=== PATIENT | female | born 1985 | race Caucasian/White ===

== ENCOUNTER 2016-10-23 03:46 | Emergency (ER) | payer SELFPAY ==
[2016-10-23 03:59] VITALS: BP 115/77; PULSE 70; TEMP 98.1; BMI 27.9
--- NOTE | 2016-10-23 04:05 | PDOC ---
History of Present Illness - General Chief Complaint: Pain Stated Complaint: 15 WKS ,BACK & ABD PAIN Time Seen by Provider: 10/23/16 04:05 Past History - Past Medical History Allergies/Adverse Reactions: Allergies Allergy/AdvReac Type Severity Reaction Status Date / Time No Known Allergies Allergy Verified 10/23/16 04:00 Home Medications: Ambulatory Orders Cholecalciferol (Vitamin D3) [Vitamin D] 1,000 unit PO DAILY 11/11/13 - Surgical History Cholecystectomy: Yes - Immunization History Immunization Up to Date: Yes - Psycho/Social/Smoking Cessation Hx Anxiety: No Suicidal Ideation: No Smoking History: Never smoked Have you smoked in the past 12 months: No Information on smoking cessation initiated: No Hx Alcohol Use: No Drug/Substance Use Hx: No Substance Use Type: None *Physical Exam - Vital Signs Last Vital Signs Temp Pulse Resp BP Pulse Ox 98.1 F 70 14 115/77 100 10/23/16 03:57 10/23/16 03:57 10/23/16 03:57 10/23/16 03:57 10/23/16 03:57 ED Treatment Course - LABORATORY CBC & Chemistry Diagram: 10/23/16 05:10 10/23/16 05:10
--- NOTE | 2016-10-23 04:34 | PDOC ---
History of Present Illness - General Chief Complaint: Pain Stated Complaint: 15 WKS ,BACK & ABD PAIN Time Seen by Provider: 10/23/16 04:05 History Source: Patient Exam Limitations: No Limitations - History of Present Illness Initial Comments: 10/23/16 04:24 Patient is a 31 y.o. female @ 15 weeks gestation who presents to the ED today c/o 1 week h/o lower back pain. Patient states her back is pain is sacral , non-radiating, dull, 6/10. Patient also notes that since her she has also noticed a clear, non-odorous mucus like discharge 2-3 times daily. ROS is positive for dysuria and increased urgency Timing/Duration: 1 week Past History - Past Medical History Allergies/Adverse Reactions: Allergies Allergy/AdvReac Type Severity Reaction Status Date / Time No Known Allergies Allergy Verified 10/23/16 04:00 Home Medications: Ambulatory Orders Vit #113/Iron/Folate [ Chewable Tab] 1 each PO DAILY - Surgical History Cholecystectomy: Yes - Immunization History Immunization Up to Date: Yes - Psycho/Social/Smoking Cessation Hx Anxiety: No Suicidal Ideation: No Smoking History: Never smoked Have you smoked in the past 12 months: No Information on smoking cessation initiated: No Hx Alcohol Use: No Drug/Substance Use Hx: No Substance Use Type: None Review of Systems - Review of Systems Constitutional: Yes: Other (No fever, chills, diaphoresis, night sweats) HEENTM: Yes: Other (No blurry vision, hearing loss, tinnitus, sore throat) Respiratory: Yes: Other (No cough, orthopnea, shortness of breath, wheezing) Cardiac (ROS): Yes: Other (No chest pain, palpitations, syncope, edema) ABD/GI: Yes: Other (No abdominal pain, constipation, diarrhea, nausea or vomiting) : Yes: Dysuria, Frequency Musculoskeletal: Yes: Back Pain (B/L Sacral Back pain, "aching" ) Integumentary: Yes: Other (No rash, erythema, bruising, lesions) Psychiatric: Yes: Other (No anxiety, depression, homicidal or suicidal ideations ) *Physical Exam - Vital Signs Last Vital Signs Temp Pulse Resp BP Pulse Ox 98.1 F 70 14 115/77 100 10/23/16 03:57 10/23/16 03:57 10/23/16 03:57 10/23/16 03:57 10/23/16 03:57 ED Treatment Course - LABORATORY CBC & Chemistry Diagram: 10/23/16 05:10 10/23/16 05:10 Medical Decision Making - Medical Decision Making 10/23/16 05:25 Transvaginal U/S revealed a viable . Patient's UA showed PLAN 1. Patient to be discharged home *DC/Admit/Observation/Transfer Diagnosis at time of Disposition: Back pain - Discharge Dispostion Disposition: HOME Condition at time of disposition: Good Admit: No - Patient Instructions Printed Discharge Instructions: DI for Low Back Pain, Common Discomforts and Bodily Changes During - Attestations Physician Attestion: 10/23/16 05:53 I, Dr. Gina Strauss, attest that this document has been prepared under my direction and personally reviewed by me in its entirety. I further attest, that it accurately reflects all work, treatment, procedures and medical decision -making performed by me.
[2016-10-23 05:24] LABS: BASOPHIL 0.5 % (0-2.0); EOSINOPHIL 0.8 % (0-4.5); MCH 29.4 pg (25.7-33.7); MCHC 34.3 g/dl (32.0-36.0); MEAN CELL VOLUME 85.8 fl (80-96); MEAN PLT VOLUME 8.3 fl (7.5-11.1); NEUTROPHILS 68.3 % (42.8-82.8); PLATELET COUNT 176 K/MM3 (134-434); WHITE BLOOD COUNT 7.4 K/mm3 (4.0-10.0)
[2016-10-23 05:38] LABS: URINE APPEARANCE CLEAR; URINE BILIRUBIN NEGATIVE (NEGATIVE); URINE BLOOD NEGATIVE (NEGATIVE); URINE COLOR LTYELLOW; URINE GLUCOSE (UA) NEGATIVE (NEGATIVE); URINE KETONE NEGATIVE (NEGATIVE); URINE LEUK ESTERASE NEGATIVE (NEGATIVE); URINE NITRITE NEGATIVE (NEGATIVE); URINE PROTEIN NEGATIVE (NEGATIVE); URINE UROBILINOGEN NEGATIVE mg/dL (0.2-1.0)
--- NOTE | 2016-10-23 05:42 | PDOC ---
Attending Attestation - Resident Resident Name: Gina Strauss - ED Attending Attestation I have performed the following: I have examined & evaluated the patient, The case was reviewed & discussed with the resident, I agree w/resident's findings & plan, Exceptions are as noted - HPI HPI: 10/23/16 05:40 31 yo F approximately 15 weeks she presents to the ER with lower abdominal pain and back pain No fevers or chills No vomiting or diarrhea No vaginal bleeding 10/23/16 05:41 - Physicial Exam PE: 10/23/16 05:41 Pt is well appearing Lower abd tenderness - Medical Decision Making 10/23/16 05:42 Will do basic labs Will do abd US Will check UA 10/27/16 11:46 Laboratory Tests 10/23/16 10/23/16 05:10 05:10 WBC 7.4 Hgb 12.3 Hct 35.9 Plt Count 176 BUN 5 L Creatinine 0.5 L US: single live IUP Will discharge to home
[2016-10-23 05:45] LABS: ALBUMIN 3.3 g/dl (3.4-5.0); ANION GAP 6 (8-16); BILIRUBIN,TOTAL 0.2 mg/dL (0.2-1.0); CALCIUM 8.9 mg/dL (8.5-10.1); CO2 25 mmol/L (21-32); CREATININE 0.5 mg/dL (0.55-1.02); GLUCOSE,RANDOM 79 mg/dL (74-106); SGOT/AST 23 U/L (15-37); SGPT/ALT 23 U/L (12-78); TOT PROT 7.1 g/dl (6.4-8.2)
[2016-10-23 05:46] LABS: ALK PHOS 58 U/L (45-117)
== END 2016-10-23 06:03 | disposition home or self-care (01) ==
LOC: JER 03:46
DX: O99.89 Other specified diseases and conditions complicating pregnancy, childbirth and the puerperium (principal); M54.5 Low back pain; Z3A.15 15 weeks gestation of pregnancy
CPT/HCPCS: 36415; 76815-TC; 80053; 81003; 85025; 86850; 86900; 86901; 87086; 99282-25

== ENCOUNTER 2017-03-31 22:45 | Inpatient (IN) | payer OTHER ==
--- NOTE | 2017-03-31 23:41 | PDOC ---
History of Present Illness - General History Source: Patient, Family Exam Limitations: No Limitations - History of Present Illness Initial Comments: 04/01/17 00:15 The patient is a 31 year old female, with a significant past medical history of pre-eclampsia, who presents to the emergency department with headache, shortness of breath, fever, chills, dysuria, hematuria, cough and bilateral flank pain for the last few days. She reports that her temperature has been as high as 101 F at home. The patient gave on 03/26/2017 via , which at the time she received an epidural without any complications. Since then she has been having the above stated symptoms. She also notes that she received morphine which gave her a body rash, but now only has a rash on her back, which is itchy at times. The patient denies chest pain, and dizziness. Denies nausea, vomit, diarrhea and constipation. Allergies: None Past surgical history: (03/26/2017), cholecystectomy Social history: No alcohol, tobacco or drug use reported <Rhett Carranza - Last Filed: 04/01/17 00:05> <Yaritza Gonzalez - Last Filed: 04/01/17 05:43> <Jonah Clayton - Last Filed: 04/01/17 23:12> - General Chief Complaint: Weakness Stated Complaint: PAIN Time Seen by Provider: 03/31/17 23:01 Past History <Rhett Carranza - Last Filed: 04/01/17 00:05> <Yaritza Gonzalez - Last Filed: 04/01/17 05:43> - Surgical History Cholecystectomy: Yes - Immunization History Immunization Up to Date: Yes - Suicide/Smoking/Psychosocial Hx Smoking History: Unknown if ever smoked Have you smoked in the past 12 months: No Information on smoking cessation initiated: No Hx Alcohol Use: No Drug/Substance Use Hx: No Substance Use Type: None <Jonah Clayton - Last Filed: 04/01/17 23:12> - Past Medical History Allergies/Adverse Reactions: Allergies Allergy/AdvReac Type Severity Reaction Status Date / Time No Known Allergies Allergy Verified 03/31/17 22:57 Home Medications: Ambulatory Orders Vit 113/Iron/Lmfolate [ Chewable Tab] 1 each PO DAILY 07/16/17 Ibuprofen [Motrin -] 600 mg PO Q6H PRN 03/31/17 Diphenhydramine HCl [Benadryl Capsule -] 25 mg PO Q6H PRN #20 capsule 04/01/17 Hydrocortisone 2.5% Lotion [Hytone 2.5% Lotion -] 1 applic TP TID PRN #90 bottle 04/01/17 Review of Systems - Review of Systems Able to Perform ROS?: Yes Comments:: 04/01/17 00:15 Constitutional: (+) Fever, chills ENT: No sore throat Cardiovascular: No palpitations; no chest pain Pulmonary: (+) Shortness of breath and cough. Gastrointestinal: No nausea; no vomiting; no diarrhea Genitourinary: (+) Dysuria, hematuria, bilateral flank pain. Skin: (+) Rash on back. Lymph system: No swollen glands Musculoskeletal: No joint swelling Neurological: (+) Headache. No weakness; No numbness; No vertigo; no lightheadedness Psychiatric:No anxiety; no depression ROS: A complete review of 10 out of 10 review of systems is taken and is negative apart from what is previously mentioned below and in the HPI. <Rhett Carranza - Last Filed: 04/01/17 00:05> *Physical Exam - Vital Signs Last Vital Signs Temp Pulse Resp BP Pulse Ox 98.2 F 95 H 16 145/93 100 03/31/17 22:55 03/31/17 22:55 03/31/17 22:55 03/31/17 22:55 03/31/17 23:48 - Physical Exam Comments: 04/01/17 00:06 Vitals: Triage vital signs reviewed General Appearance: No acute distress, well nourished, well developed Head: Atraumatic Eyes: Pupils equal reactive round, extraocular movement intact Ears: TM's normal bilaterally Nose: Nares patent bilaterally; no nasal congestion Throat: Posterior oropharynx without erythema, mucous membranes moist Neck: Supple; No nuchal rigidity Chest Wall: Nontender Cardiac: Regular rate and rhythm, no murmurs, no rubs, no gallops Lungs: Clear to auscultation bilateral, good air movement bilaterally Abdomen: (+) Left CVA tenderness. Tenderness in abdominal region near incisional area. Soft, nondistended, normal bowel sounds. Rectal: Exam deferred Extremities: Full range of motion to all extremities, no cyanosis, clubbing, or edema Skin: (+) Well healed incisional site in the lower abdomen. Neuro: AOX3; Cranial Nerves 2-12 grossly intact, Strength intact to all extremities, Sensation intact to all extremities. Psych: Normal mood, normal affect <Rhett Carranza - Last Filed: 04/01/17 00:05> - Vital Signs Last Vital Signs Temp Pulse Resp BP Pulse Ox 98.2 F 95 H 16 145/93 100 03/31/17 22:55 03/31/17 22:55 03/31/17 22:55 03/31/17 22:55 03/31/17 23:48 <Yaritza Gonzalez - Last Filed: 04/01/17 05:43> - Vital Signs Last Vital Signs Temp Pulse Resp BP Pulse Ox 98.2 F 95 H 16 145/93 100 03/31/17 22:55 03/31/17 22:55 03/31/17 22:55 03/31/17 22:55 03/31/17 22:55 <Jonah Clayton - Last Filed: 04/01/17 23:12> Heart Score/ECG Review #1 ECG reviewed & interpreted by me at: 23:54 03/31/17 23:49 EKG performed at 23:49 on 03/31/2017 demonstrates rate of 80 bpm. Normal sinus rhythm. No T wave inversions, no ST elevations <Rhett Carranza - Last Filed: 04/01/17 00:05> ED Treatment Course - LABORATORY CBC & Chemistry Diagram: 04/01/17 00:00 04/01/17 00:00 - ADDITIONAL ORDERS Additional order review: Laboratory Results 04/01/17 04/01/17 04/01/17 00:39 00:01 00:00 Sodium Potassium Chloride Carbon Dioxide Anion Gap BUN Creatinine Creat Clearance w eGFR Random Glucose Lactic Acid 0.6 Calcium Total Bilirubin AST ALT Alkaline Phosphatase Total Protein Albumin Urine Color Ltyellow Urine Appearance Clear Urine pH 5.0 Ur Specific [place] 1.011 Urine Protein Negative Urine Glucose (UA) Negative Urine Ketones Trace H Urine Blood Negative Urine Nitrite Negative Urine Bilirubin Negative Urine Urobilinogen Negative Blood Type O POSITIVE Antibody Screen Negative 04/01/17 00:00 Sodium 139 Potassium 4.3 Chloride 106 Carbon Dioxide 23 Anion Gap 10 BUN 14 D Creatinine 0.7 D Creat Clearance w eGFR > 60 Random Glucose 80 Lactic Acid Calcium 8.5 Total Bilirubin 0.4 D AST 20 ALT 20 Alkaline Phosphatase 129 H D Total Protein 6.7 Albumin 2.6 L D Urine Color Urine Appearance Urine pH Ur Specific [place] Urine Protein Urine Glucose (UA) Urine Ketones Urine Blood Urine Nitrite Urine Bilirubin Urine Urobilinogen Blood Type Antibody Screen 04/01/17 00:00 RBC 3.49 L MCV 87.6 MCHC 33.2 RDW 14.3 MPV 7.9 Neutrophils % 70.2 Lymphocytes % 21.7 Monocytes % 7.0 Eosinophils % 0.9 Basophils % 0.2 - Medications Given in the ED: ED Medications Discontinued Medications Generic Name Dose Route Start Last Admin Trade Name Freq PRN Reason Stop Dose Admin Sodium Chloride 1,000 ml 03/31/17 23:42 04/01/17 00:33 Normal Saline - IV 03/31/17 23:43 1,000 ml ONCE ONE Administration <Yaritza Gonzalez - Last Filed: 04/01/17 05:43> - LABORATORY CBC & Chemistry Diagram: 04/01/17 00:00 04/01/17 00:00 - RADIOLOGY Radiology Studies Ordered: Category Date Time Status ABDOMEN & PELVIS CT WITH CONTR [CT] Stat CT Scan 03/31/17 23:38 Ordered <Jonah Clayton - Last Filed: 04/01/17 23:12> Medical Decision Making - Medical Decision Making 04/01/17 03:34 Patient Name: ROGERS PÉREZ THIS IS A PRELIMINARY REPORT FROM [facility] DATE OF SERVICE: 2017-04-01 01:46:10 IMAGES: 534 EXAM: CT ABDOMEN AND PELVIS with vascular contrast HISTORY: Lower abdominal pain COMPARISON: None. FINDINGS: Abdomen Liver: Normal Spleen: Normal Pancreas: Normal Gallbladder: Normal Stomach: Normal Small bowel: Normal Large bowel: Normal Appendix: Normal Adrenals:Normal Kidneys: Normal Vascular: Normal Lymphatic: Normal Peritoneal: There is a focal peritoneal high density fluid collection in the left paracolic gutter. This measures 4.3 x 5.1 x 11.2 cm and likely reflects a focal hematoma. There is small amount of blood and air anterior to the uterus Pelvis: Uterus: Uterus is enlarged. There are surgical changes of delivery Rectum: Normal Bladder: Normal The inferior thorax: Normal General: Skeletal: Normal Abdominal wall: There is a cutaneous suture line in the inferior pelvis. There is a small amount of fluid in the rectus abdominal muscles measuring 4.2 x 1.1 cm IMPRESSION: Complex peritoneal fluid and air likely reflecting pneumoperitoneum and hemoperitoneum following delivery. Correlation with history and hemodynamic stability is recommended 04/01/17 05:13 Pt has shingles over multiple dermatomes of the backL Around T5, T8,9 and T11, 12 on the left side and around T11 on the right side. Pt wi;; be admitted to isolation bed and requires serologic testing to r/o VZV. Pt will also require ID eval. Pt 's baby (Jaron Huddleston) will be sent to [facility]. I spoke to the [facility] hospitalist, who agrees that the baby should be admitted through the [facility] ER. I called [facility], where pt delivered and spoke to the night network support administrator Tomasa and to the nurse of the L+D floor to alert them of the shingles outbreak 04/01/17 05:43 <Yaritza Gonzalez - Last Filed: 04/01/17 05:43> - Medical Decision Making 04/01/17 02:00 Lower abdominal pain 6 weeks status post . Mild CVA tenderness and dysuria on history and examination We'll check labs hydrate CT IV contrast and reassess. Rash on back, B/L crosses midline, ? vesicular. Dr. 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
[2017-03-31] MEDS ORDERED: SODIUM CHLORIDE 0.9% 1000 ML INFUS.BAG IV ONE (23:42)
[2017-04-01] MEDS ORDERED: morphine CARPU-JECT 4 MG/1 ML DISP.SYRIN IVPUSH ONE (00:24)
[2017-04-01] MEDS ORDERED: morphine CARPU-JECT 8 MG/1 ML DISP.SYRIN ONE (00:28)
[2017-04-01 00:34] LABS: BASO % 0.2 % (0-2.0); EOS # 0.1 # (0-4.5); EOS % 0.9 % (0-4.5); LYMPH # 1.5 (8-40); MCH 29.1 pg (25.7-33.7); MCHC 33.2 g/dl (32.0-36.0); MEAN CELL VOLUME 87.6 fl (80-96); MEAN PLT VOLUME 7.9 fl (7.5-11.1); MONO # 0.5 # (3.8-10.2); NEUT # 4.9 # (42.8-82.8); NEUT % 70.2 % (42.8-82.8); PLATELET COUNT 276 K/MM3 (134-434); RDW 14.3 % (11.6-15.6)
[2017-04-01 00:56] LABS: URINE APPEARANCE CLEAR; URINE BILIRUBIN NEGATIVE (NEGATIVE); URINE BLOOD NEGATIVE (NEGATIVE); URINE COLOR LTYELLOW; URINE GLUCOSE (UA) NEGATIVE (NEGATIVE); URINE KETONE TRACE (NEGATIVE); URINE LEUK ESTERASE NEGATIVE (NEGATIVE); URINE NITRITE NEGATIVE (NEGATIVE); URINE PROTEIN NEGATIVE (NEGATIVE); URINE UROBILINOGEN NEGATIVE mg/dL (0.2-1.0)
[2017-04-01 01:01] LABS: ALBUMIN 2.6 g/dl (3.4-5.0); ALK PHOS 129 U/L (45-117); ANION GAP 10 (8-16); BILIRUBIN,TOTAL 0.4 mg/dL (0.2-1.0); CALCIUM 8.5 mg/dL (8.5-10.1); CO2 23 mmol/L (21-32); CREATININE 0.7 mg/dL (0.55-1.02); GLUCOSE,RANDOM 80 mg/dL (74-106); SGOT/AST 20 U/L (15-37); SGPT/ALT 20 U/L (12-78); TOT PROT 6.7 g/dl (6.4-8.2)
[2017-04-01] MEDS ORDERED: valACYclovir HCL 1000 MG TABLET PO ONE (03:56)
[2017-04-01] MEDS ORDERED: morphine CARPU-JECT 8 MG/1 ML DISP.SYRIN IVPUSH PRN (04:18)
--- NOTE | 2017-04-01 05:22 | HP ---
CHIEF COMPLAINT: PCP: HISTORY OF PRESENT ILLNESS: 31 yo F with PMHx of pre-eclampsia presents to ER with two day history of cough and malaise for two days. She had on 03/26/17 and the day after she developed a generalized rash which she was told was allergic reaction to morphine. Recently for the past two days she has experience some fevers (tmax 101) and chills at home. Today she was very weak and was worried about some type of infection that prompted trip to ED. Upon arrive she was complaining of some vague abdominal pain at the incision site. In terms of rash she states that is was initially generalized to face and trunk but is now mainly on her lower back and is extremely puritic. She does not complain of any pain in distribution of rash and no burning or numbness. She has had chicken pox as a child and there have been no sick contacts with similar rash. Denies CP, MCCARTNEY, SOB , palpitations, N/V/D/ or constipation. ER course was notable for: (1)CT abdomen was done and report in chart- Complex peritoneal fluid and air likely reflecting pneumoperitoneum and hemoperitoneum following delivery. (2)CBC hgb of 10 (3) Recent Travel: Denies PAST MEDICAL HISTORY:pre-eclampsia PAST SURGICAL HISTORY: 03/26/17, Cholecystectomy Social History: Smoking:never Alcohol:denies Drugs: denies Family History: Allergies No Known Allergies Allergy (Verified 03/31/17 22:57) HOME MEDICATIONS: Home Medications Medication Instructions Recorded Vit 113/Iron/Lmfolate 1 each PO DAILY 10/23/16 [ Chewable Tab] Ibuprofen [Motrin -] 600 mg PO Q6H PRN 03/31/17 REVIEW OF SYSTEMS CONSTITUTIONAL:fever, chills, diaphoresis, generalized weakness, malaise Absent: , loss of appetite, weight change HEENT: Absent: rhinorrhea, nasal congestion, throat pain, throat swelling, difficulty swallowing, mouth swelling, ear pain, eye pain, visual changes CARDIOVASCULAR: Absent: chest pain, syncope, palpitations, irregular heart rate, lightheadedness , peripheral edema RESPIRATORY: Absent: cough, shortness of breath, dyspnea with exertion, orthopnea, wheezing, stridor, hemoptysis GASTROINTESTINAL: Absent: abdominal pain, abdominal distension, nausea, vomiting, diarrhea, constipation, melena, hematochezia GENITOURINARY: Absent: dysuria, frequency, urgency, hesitancy, hematuria, flank pain, genital pain MUSCULOSKELETAL: Absent: myalgia, arthralgia, joint swelling, back pain, neck pain SKIN: Absent: rash, itching, pallor HEMATOLOGIC/IMMUNOLOGIC: Absent: easy bleeding, easy bruising, lymphadenopathy, frequent infections ENDOCRINE: Absent: unexplained weight gain, unexplained weight loss, heat intolerance, cold intolerance NEUROLOGIC: Absent: headache, focal weakness or paresthesias, dizziness, unsteady gait, seizure, mental status changes, bladder or bowel incontinence PSYCHIATRIC: Absent: anxiety, depression, suicidal or homicidal ideation, hallucinations. PHYSICAL EXAMINATION Vital Signs - 24 hr 03/31/17 03/31/17 22:55 23:48 Temperature 98.2 F Pulse Rate 95 H Respiratory 16 Rate Blood Pressure 145/93 O2 Sat by Pulse 100 100 Oximetry (%) GENERAL: Awake, alert, and fully oriented, in no acute distress. HEAD: Normal with no signs of trauma. EYES: Pupils equal, round and reactive to light, extraocular movements intact, sclera anicteric, conjunctiva clear. No lid lag. EARS, NOSE, THROAT: Ears normal, nares patent, oropharynx clear without exudates. Moist mucous membranes. NECK: Normal range of motion, supple without lymphadenopathy, JVD, or masses. LUNGS: Breath sounds equal, clear to auscultation bilaterally. No wheezes, and no crackles. No accessory muscle use. HEART: Regular rate and rhythm, normal S1 and S2 without murmur, rub or gallop. ABDOMEN: Soft, nontender, not distended, normoactive bowel sounds, no guarding, no rebound, no masses. No hepatomegaly or splenomegaly. MUSCULOSKELETAL: Normal range of motion at all joints. No bony deformities or tenderness. No CVA tenderness. UPPER EXTREMITIES: 2+ pulses, warm, well-perfused. No cyanosis. No clubbing. No peripheral edema. LOWER EXTREMITIES: 2+ pulses, warm, well-perfused. No calf tenderness. No peripheral edema. NEUROLOGICAL: Cranial nerves II-XII intact. Normal speech. Normal gait. PSYCHIATRIC: Cooperative. Good eye contact. Appropriate mood and affect. SKIN: Warm, dry, normal turgor, no rashes or lesions noted, normal capillary refill. Laboratory Results - last 24 hr 04/01/17 04/01/17 04/01/17 00:00 00:00 00:00 WBC 7.0 RBC 3.49 L Hgb 10.1 L D Hct 30.6 L MCV 87.6 MCH 29.1 MCHC 33.2 RDW 14.3 Plt Count 276 D MPV 7.9 Neutrophils % 70.2 Lymphocytes % 21.7 Monocytes % 7.0 Eosinophils % 0.9 Basophils % 0.2 Sodium 139 Potassium 4.3 Chloride 106 Carbon Dioxide 23 Anion Gap 10 BUN 14 D Creatinine 0.7 D Creat Clearance w eGFR > 60 Random Glucose 80 Lactic Acid Calcium 8.5 Total Bilirubin 0.4 D AST 20 ALT 20 Alkaline Phosphatase 129 H D Total Protein 6.7 Albumin 2.6 L D Urine Color Urine Appearance Urine pH Ur Specific [place] Urine Protein Urine Glucose (UA) Urine Ketones Urine Blood Urine Nitrite Urine Bilirubin Urine Urobilinogen Blood Type O POSITIVE Antibody Screen Negative 04/01/17 04/01/17 00:01 00:39 WBC RBC Hgb Hct MCV MCH MCHC RDW Plt Count MPV Neutrophils % Lymphocytes % Monocytes % Eosinophils % Basophils % Sodium Potassium Chloride Carbon Dioxide Anion Gap BUN Creatinine Creat Clearance w eGFR Random Glucose Lactic Acid 0.6 Calcium Total Bilirubin AST ALT Alkaline Phosphatase Total Protein Albumin Urine Color Ltyellow Urine Appearance Clear Urine pH 5.0 Ur Specific [place] 1.011 Urine Protein Negative Urine Glucose (UA) Negative Urine Ketones Trace H Urine Blood Negative Urine Nitrite Negative Urine Bilirubin Negative Urine Urobilinogen Negative Blood Type Antibody Screen ASSESSMENT/PLAN: 31 yo F with no signficant PMHx admitted to hospital for further management of suspected herpes zoster infection. Problem List - Problem (1) Shingles (herpes zoster) polyneuropathy Assessment/Plan: Possible multiple dermatome shingles. * Will consult ID * Valacyclovir given * IVF with NS * Will need comfirmitory test Visit type - Emergency Visit Emergency Visit: Yes ED Registration Date: 04/01/17 Care time: The patient presented to the Emergency Department on the above date and was hospitalized for further evaluation of their emergent condition. - New Patient This patient is new to me today: Yes Date on this admission: 04/04/17 - Critical Care Critical Care patient: No
[2017-04-01 08:31] VITALS: BP 125/82; BMI 27.7
--- NOTE | 2017-04-01 09:34 | PN ---
Progress Note (short form) - Note Progress Note: ID 31 year old Citizen Of [place] female living in [place] 12 years S/P Cesarian section 03/26 complicated by precalmpsia at 36 weeks. Discharged 03/29 Day after surgery had a pruritic rash all over her back chest abd not painful. Now returns with same rash still pruritic. ON isolation for VZV. HIV status negative . No travel Not diabetic. Selected Entries 04/01/17 08:14 Temperature 98.2 F Pulse Rate 85 Respiratory 20 Rate Blood Pressure 125/82 Weight 137 lb 7 oz Lung Clear Cor S1 S2 RR Abd soft nontender suture line clean no drainage fluctuance tenderness Skin Mac paularo rash lower back bilaterally upper abdomen neck Microbiology Laboratory Tests 04/01/17 00:00 WBC 7.0 Hgb 10.1 L D Hct 30.6 L Plt Count 276 D Neutrophils % 70.2 Lymphocytes % 21.7 Monocytes % 7.0 Eosinophils % 0.9 Assessment Drug eruption ? morphne related This is not shingles Plan Steroids Prednisone ? home with follow up with [facility] Problem List - Problems (1) Drug eruption Code(s): L27.0 - GEN SKIN ERUPTION DUE TO DRUGS AND MEDS TAKEN INTERNALLY (2) Shingles (herpes zoster) polyneuropathy Code(s): B02.23 - POSTHERPETIC POLYNEUROPATHY
[2017-04-01 12:26] LABS: URINE LEUK ESTERASE Negative (NEGATIVE)
[2017-04-01 15:27] VITALS: PULSE 64; TEMP 99.1
[2017-04-01] MEDS ORDERED: diphenhydrAMINE HCL 25 MG CAPSULE (FP) PO PRN (15:31)
[2017-04-01] MEDS ORDERED: HYDROCORTISONE 2.5% LOTION - 1 BOTTLE TP PRN (15:31)
--- NOTE | 2017-04-01 15:34 | DS ---
Physical Examination Vital Signs: Vital Signs Temperature 99.1 F 04/01/17 15:26 Pulse Rate 64 04/01/17 15:26 Respiratory Rate 18 04/01/17 15:26 Blood Pressure 125/82 04/01/17 08:14 O2 Sat by Pulse Oximetry (%) 100 04/01/17 07:05 Findings/Remarks: awake alert no fever no chills, likely rash is allerghic reaction to anesthesia or contact Constitutional: Yes: No Distress Eyes: Yes: WNL HENT: Yes: WNL Neck: Yes: WNL Cardiovascular: Yes: WNL Respiratory: Yes: WNL Gastrointestinal: Yes: WNL Musculoskeletal: Yes: WNL Extremities: Yes: WNL Edema: No Peripheral Pulses WNL: Yes Integumentary: Yes: Rash (RED ERYTHEMA ON MULTIPLE SITES ON HER BODY THAT CROSS OVER , NOT ZOSTER), Other Wound/Incision: Yes: [place] Intact Neurological: Yes: WNL ...Motor Strength: WNL Psychiatric: Yes: WNL Labs: CBC, BMP 04/01/17 00:00 04/01/17 00:00 Discharge Summary Reason For Visit: SHINGLES (HERPES ZOSTER) POLYNEUOPATHY Current Active Problems Drug eruption (Acute) Shingles (herpes zoster) polyneuropathy (Acute) Hospital Course: ADMITTED IVF, WOUND CARE, ID F/U Condition: Good - Instructions Diet, Activity, Other Instructions: REG SEE YOUR PMD IN 1-2 DAYS NO BREAST FEEDING! Referrals: Lynda Valdez [Primary Care Provider] - Disposition: HOME - Home Medications Comprehensive Discharge Medication List: Ambulatory Orders Vit 113/Iron/Lmfolate [ Chewable Tab] 1 each PO DAILY 10/23/16 Ibuprofen [Motrin -] 600 mg PO Q6H PRN 03/31/17
--- NOTE | 2017-04-01 16:30 | EKG ---
Test Reason : Blood Pressure : / mmHG Vent. Rate : 080 BPM Atrial Rate : 080 BPM P-R Int : 134 ms QRS Dur : 082 ms QT Int : 372 ms P-R-T Axes : 054 004 022 degrees QTc Int : 429 ms NORMAL SINUS RHYTHM NORMAL ECG NO PREVIOUS ECGS AVAILABLE Confirmed by LEXI JIMENEZ MD ([id number]) on 04/01/2017 4:30:03 PM Referred By: Confirmed By:LEXI JIMENEZ MD
== END 2017-04-01 17:11 | disposition home or self-care (01) | DRG 561 ==
LOC: JER 22:45 → JERBED 04-01 04:17 → J8W 04-01 08:37
PROVIDERS: ADMIT Internal Medicine; ATTEND Family Medicine
DX: O86.4 Pyrexia of unknown origin following delivery (principal); B02.23 Postherpetic polyneuropathy; O90.89 Other complications of the puerperium, not elsewhere classified; L27.0 Generalized skin eruption due to drugs and medicaments taken internally; T50.995A Adverse effect of other drugs, medicaments and biological substances, initial encounter
CPT/HCPCS: 36415; 74177-TC; 80053; 81003; 83605; 85025; 86787; 86850; 86900; 86901; 87040; 87086; 93005; 93010; 99284-25

== ENCOUNTER 2018-05-29 19:52 | Emergency (ER) | payer OTHER ==
--- NOTE | 2018-05-29 19:59 | PDOC ---
Rapid Medical Evaluation Chief Complaint: Headache Time Seen by Provider: 05/29/18 19:56 Medical Evaluation: Allergies Allergy/AdvReac Type Severity Reaction Status Date / Time No Known Allergies Allergy Verified 09/21/17 10:53 05/29/18 19:57 I have performed a brief in person evaluation of this patient. CC: MCCARTNEY HPI: Pt is a 32 YO female who states that over the past 2 days she has had neck pain/stiffness with MCCARTNEY x 2 days. Denies fever. Pt took Tylenol at 1900. No Motrin today. PE: Skin: Clear Lungs: Clear Heart:RRR MS: Moves all extremities without difficulty Neuro: Alert and oriented Psych: Appropriate affect Pt will proceed to the main ED for further evaluation. 05/29/18 19:58 Discharge Disposition - Diagnosis Headache Qualifiers: Headache type: unspecified Headache chronicity pattern: acute headache Intractability: not intractable Qualified Code(s): R51 - Headache - Referrals - Patient Instructions - Post Discharge Activity
[2018-05-29 20:01] VITALS: TEMP 98; BMI 27.0
--- NOTE | 2018-05-29 20:39 | PDOC ---
History of Present Illness - General Chief Complaint: Headache Stated Complaint: DIZZY NECK PAIN Time Seen by Provider: 05/29/18 19:56 History Source: Patient - History of Present Illness Initial Comments: 05/29/18 22:52 32-year-old female complaining of headache photophobia and neck pain since 2 PM. Patient reports that she has been getting headaches on and off for the last one year after giving . Today took Tylenol with no relief in pain. Patient also reports sore throat denies fevers/chills, rash, nausea, vomiting, diarrhea , abdominal pain. Past History - Past Medical History Allergies/Adverse Reactions: Allergies Allergy/AdvReac Type Severity Reaction Status Date / Time No Known Allergies Allergy Verified 05/29/18 20:00 Home Medications: Ambulatory Orders NK [No Known Home Medication] 09/21/17 COPD: No - Surgical History Cholecystectomy: Yes - Immunization History Immunization Up to Date: Yes - Suicide/Smoking/Psychosocial Hx Smoking History: Never smoked Have you smoked in the past 12 months: No Information on smoking cessation initiated: No Hx Alcohol Use: No Drug/Substance Use Hx: No Substance Use Type: None Review of Systems - Review of Systems Able to Perform ROS?: Yes Is the patient limited Uzbek proficient: No Constitutional: No: Symptoms Reported, See HPI, Chills, Diaphoresis, Fever, Loss of Appetite, Malaise, Night Sweats, Weakness, Weight Stable, Unintentional Wgt. Loss, Unexplained wgt Loss, Other HEENTM: Yes: Other (photophobia). No: Symptoms Reported, See HPI, Eye Pain, Blurred Vision, Tearing, Recent change in vision, Double Vision, Cataracts, Ear Pain, Ocular Prothesis, Ear Discharge, Nose Pain, Nose Congestion, Tinnitus, Nose Bleeding, Hearing Loss, Throat Pain, Throat Swelling, Mouth Pain, Dental Problems, Difficulty Swallowing, Mouth Swelling Neurological: Yes: Headache *Physical Exam - Vital Signs Last Vital Signs Temp Pulse Resp BP Pulse Ox 98.0 F 73 18 150/96 100 05/29/18 19:58 05/29/18 19:58 05/29/18 19:58 05/29/18 19:58 05/29/18 19:58 - Physical Exam General Appearance: Yes: Appropriately Dressed Respiratory/Chest: positive: Lungs Clear, Normal Breath Sounds Moderate Sedation - Procedure Monitoring Vital Signs: Procedure Monitoring Vital Signs Temperature 98.0 F 05/29/18 19:58 Pulse Rate 73 05/29/18 19:58 Respiratory Rate 18 05/29/18 19:58 Blood Pressure 150/96 05/29/18 19:58 O2 Sat by Pulse Oximetry (%) 100 05/29/18 19:58 ED Treatment Course - LABORATORY CBC & Chemistry Diagram: 05/29/18 21:05 05/29/18 21:05 *DC/Admit/Observation/Transfer Diagnosis at time of Disposition: Headache Qualifiers: Headache type: unspecified Headache chronicity pattern: acute headache Intractability: not intractable Qualified Code(s): R51 - Headache - Discharge Dispostion Disposition: HOME - Referrals Referrals: Edward Carcamo MD [Staff Physician] - Call tomorrow Weston Lloyd MD [Staff Physician] - Call tomorrow - Patient Instructions Printed Discharge Instructions: Migraine -- Adult Additional Instructions: drink plenty of fluids take tylenol for headache every 4- 6hours as needed follow up with a neurologist as soon as possible. return to the ER if symptoms worsen. - Post Discharge Activity Forms/Work/School Notes: Back to Work NIH Stroke Scale - Last Known Well Date/Time & Onset Date Last Known Well: 05/29/18 Time Last Known Well: 14:00 - Initial Evaluation Level of consciousness: Alert Ask patient the month and their age: Answers both correctly Ask patient to open & close eyes; make fist and let go: Obeys both correctly Best gaze (horizontal eye movement): Normal Visual field testing: No visual field loss Facial paresis (Show teeth/raise eyebrows/close eyes tight): Normal symmetrical movement Motor Function: Left Arm: Normal Motor Function: Right Arm: Normal (extends arm 90 (or 45) degrees for 10 seconds without drift Motor Function: Left Leg: Normal (extends leg 30 degrees for 5 seconds without drift) Motor Function: Right Leg: Normal (extends leg 30 degrees for 5 seconds without drift) Limb Ataxia: No ataxia Sensory(Use pinprick test arms,legs,trunk,face/side to side): Normal Best language (Describe picture, name items, read sentences): No Aphasia Dysarthria (read several words): Normal articulation Extinction and Inattention: No abnormality - Total Score NIH Stroke Scale Score: 0
[2018-05-29] MEDS ORDERED: METOCLOPRAMIDE HCL INJECTION 10 MG/2 ML VIAL IVPB ONE (20:40)
[2018-05-29] MEDS ORDERED: SODIUM CHLORIDE 1,000 ML IV STA (20:40)
[2018-05-29] MEDS ORDERED: METOCLOPRAMIDE HCL INJECTION 10 MG/2 ML VIAL ONE (21:13)
[2018-05-29 21:41] LABS: BASO % 0.3 % (0-2.0); EOS % 0.8 % (0-4.5); HEMATOCRIT 38.1 % (32.4-45.2); HEMOGLOBIN 13.1 GM/dL (10.7-15.3); LYMPH % 46.3 % (8-40); MCH 29.6 pg (25.7-33.7); MCHC 34.3 g/dl (32.0-36.0); MEAN CELL VOLUME 86.3 fl (80-96); MEAN PLT VOLUME 9.2 fl (7.5-11.1); MONO % 6.1 % (3.8-10.2); NEUT % 46.5 % (42.8-82.8); PLATELET COUNT 189 K/MM3 (134-434); RBC 4.41 M/mm3 (3.60-5.2); RDW 13.8 % (11.6-15.6); WHITE BLOOD COUNT 5.6 K/mm3 (4.0-10.0)
[2018-05-29 21:47] LABS: ALBUMIN 4.2 g/dl (3.4-5.0); ALK PHOS 117 U/L (45-117); ANION GAP 6 MMOL/L (8-16); BILIRUBIN,TOTAL 0.3 mg/dL (0.2-1); BLOOD UREA NITROGEN 16 mg/dL (7-18); CALCIUM 9.1 mg/dL (8.5-10.1); CHLORIDE 106 mmol/L (98-107); CO2 28 mmol/L (21-32); CREATININE 0.7 mg/dL (0.55-1.3); GLUCOSE,RANDOM 81 mg/dL (74-106); POTASSIUM 4.3 mmol/L (3.5-5.1); SGOT/AST 26 U/L (15-37); SGPT/ALT 20 U/L (13-61); SODIUM 140 mmol/L (136-145); TOT PROT 8.2 g/dl (6.4-8.2)
[2018-05-29] MEDS ORDERED: KETOROLAC TROMETHAMINE 30 MG/1 ML VIAL IVPUSH ONE (22:57)
[2018-05-29 23:37] VITALS: BP 142/76; PULSE 78
== END 2018-05-29 23:37 | disposition home or self-care (01) ==
LOC: JER 19:52
PROC: 3E033GC Introduction of Other Therapeutic Substance into Peripheral Vein, Percutaneous Approach (ICD-10-PCS; principal; 2018-05-29)
PROC: 3E033GC Introduction of Other Therapeutic Substance into Peripheral Vein, Percutaneous Approach (ICD-10-PCS; 2018-05-29)
DX: R51 Headache (principal)
CPT/HCPCS: 36415; 70450-TC; 80053; 84443; 84703; 85025; 87070; 87077; 87880; 96374; 96375; 99282-25; J7030

== ENCOUNTER 2018-11-20 10:27 | Emergency (ER) | payer SELFPAY ==
[2018-11-20 10:34] VITALS: BMI 19.2
[2018-11-20] MEDS ORDERED: SODIUM CHLORIDE 1,000 ML IV STA (10:49)
[2018-11-20] MEDS ORDERED: ONDANSETRON 4 MG/2 ML VIAL IVPUSH ONE (10:49)
[2018-11-20] MEDS ORDERED: ACETAMINOPHEN 325 MG TABLET (FP) PO ONE (10:49)
[2018-11-20] MEDS ORDERED: ONDANSETRON 4 MG/2 ML VIAL ONE (11:32)
[2018-11-20] MEDS ORDERED: ACETAMINOPHEN 325 MG TABLET (FP) ONE (11:32)
--- NOTE | 2018-11-20 11:48 | PDOC ---
History of Present Illness - General History Source: Patient Exam Limitations: No Limitations <Melanie Melo - Last Filed: 11/20/18 15:18> <Tahira Kaufman - Last Filed: 11/20/18 15:22> - General Chief Complaint: SIRS, Suspected/Possible Stated Complaint: VOMITING/DIARRHEA Time Seen by Provider: 11/20/18 10:38 Past History - Past Medical History COPD: No - Surgical History Cholecystectomy: Yes - Immunization History Immunization Up to Date: Yes - Suicide/Smoking/Psychosocial Hx Smoking History: Never smoked Have you smoked in the past 12 months: No Hx Alcohol Use: No Drug/Substance Use Hx: No Substance Use Type: None <KameronMargaretMelanie - Last Filed: 11/20/18 15:18> <Tahira Kaufman - Last Filed: 11/20/18 15:22> - Past Medical History Allergies/Adverse Reactions: Allergies Allergy/AdvReac Type Severity Reaction Status Date / Time No Known Allergies Allergy Verified 11/20/18 10:34 Home Medications: Ambulatory Orders Azithromycin [Zithromax] 500 mg PO DAILY #5 tablet 06/01/18 Cephalexin Monohydrate [Keflex -] 500 mg PO Q8H #30 capsule 11/20/18 *Physical Exam - Vital Signs Last Vital Signs Temp Pulse Resp BP Pulse Ox 100.3 F H 91 H 18 117/63 100 11/20/18 10:32 11/20/18 10:32 11/20/18 10:32 11/20/18 10:32 11/20/18 10:32 - Physical Exam General Appearance: No: Apparent Distress Respiratory/Chest: positive: Lungs Clear, Normal Breath Sounds. negative: Respiratory Distress Cardiovascular: positive: Regular Rhythm, Regular Rate, S1, S2. negative: Murmur Gastrointestinal/Abdominal: positive: Normal Bowel Sounds, Soft. negative: Tender, Distended, Guarding, Rebound Musculoskeletal: negative: CVA Tenderness Integumentary: positive: Other (R nipple swollen, R nipple induration, no surrounding erythema, no warmth, no masses) Neurologic: positive: Alert, Normal Mood/Affect <KameronMelanie - Last Filed: 11/20/18 15:18> - Vital Signs Last Vital Signs Temp Pulse Resp BP Pulse Ox 100.3 F H 91 H 18 117/63 100 11/20/18 10:32 11/20/18 10:32 11/20/18 10:32 11/20/18 10:32 11/20/18 10:32 <Tahira Kaufman Shaebibilili - Last Filed: 11/20/18 15:22> ED Treatment Course - LABORATORY CBC & Chemistry Diagram: 11/20/18 12:21 11/20/18 12:21 <Melanie Melo - Last Filed: 11/20/18 15:18> - LABORATORY CBC & Chemistry Diagram: 11/20/18 12:21 11/20/18 12:21 - ADDITIONAL ORDERS Additional order review: Laboratory Results 11/20/18 11/20/18 11/20/18 12:21 12:21 12:21 Sodium 137 Potassium 4.3 Chloride 103 Carbon Dioxide 27 Anion Gap 8 BUN 11.5 Creatinine 0.8 Est GFR (CKD-EPI)AfAm 110.70 Est GFR (CKD-EPI)NonAf 95.52 Random Glucose 129 H Calcium 8.7 Total Bilirubin 0.5 AST 20 ALT 20 Alkaline Phosphatase 88 Total Protein 7.7 Albumin 3.8 Urine Color Yellow Urine Appearance Clear Urine pH 8.0 D Ur Specific [place] 1.025 Urine Protein Negative Urine Glucose (UA) Negative Urine Ketones Negative Urine Blood Negative Urine Nitrite Negative Urine Bilirubin Negative Urine Urobilinogen 0.2 Ur Leukocyte Esterase Negative Urine HCG, Qual Negative 11/20/18 12:21 RBC 4.41 MCV 87.2 MCHC 33.7 RDW 13.1 MPV 9.1 Neutrophils % 91.9 H D Lymphocytes % 5.4 L D Monocytes % 2.6 L Eosinophils % 0.0 D Basophils % 0.1 - Medications Given in the ED: ED Medications Discontinued Medications Generic Name Dose Route Start Last Admin Trade Name Freq PRN Reason Stop Dose Admin Acetaminophen 975 mg 11/20/18 10:49 11/20/18 12:11 Tylenol - PO 11/20/18 10:50 975 mg ONCE ONE Administration Cephalexin HCl 500 mg 11/20/18 13:23 11/20/18 13:15 Keflex - PO 11/20/18 13:24 500 mg ONCE ONE Administration Sodium Chloride 1,000 mls @ 1,000 mls/hr 11/20/18 10:49 11/20/18 12:10 Normal Saline - IV 11/20/18 11:48 1,000 mls/hr ASDIR STA Administration Ibuprofen 600 mg 11/20/18 12:59 11/20/18 13:15 Motrin - PO 11/20/18 13:00 600 mg ONCE ONE Administration Ondansetron HCl 4 mg 11/20/18 10:49 11/20/18 12:11 Zofran Injection IVPUSH 11/20/18 10:50 4 mg ONCE ONE Administration <Tahira Kaufman - Last Filed: 11/20/18 15:22> Medical Decision Making - Medical Decision Making 33 y/o F with no sig pmh presents with fever from yesterday along with body aches, epigastric pain, 1 episode of NBNB emesis and 3 episodes of watery diarrhea and slight dysuria. Also mentions R breast is swollen x 1 month; is currently (gave Mar 2017; breasts and bottle feeds); when she initially noticed the swelling, she said it got better after she continued to breastfeed. However, states her baby scratched the nipple region and now it has gotten worse. Denies URI sxs, sore throat, ear pain, cough, sob, cp, hematuria. LNMP was 7/25. Last took Tylenol for fever at 3 AM Concern for R nipple abscess, no evidence of cellulitis on exam; also r/o pyelonephritis Plan: Labs, IVF, Tylenol, Zofran, reassess 11/20/18 11:45 urine negative breast US shows no evidence of abscess; likely some inflammation noted Patient given keflex Will refer to breast doctor for further evaluation 11/20/18 15:08 <Melanie Melo - Last Filed: 11/20/18 15:18> - Medical Decision Making The patient was seen and evaluated in conjunction with midlevel provider under my direct supervision, ancillary studies were reviewed. I agree with the plan as outlined EILEEN Melo. HPI, workup/dispo as outlined. VS reviewed, +fever nontoxic appearing no nipple drainage, no erythema or discoloration treat as mastitis, warm compresses, breast elevation and support, keflex TID x 10 day course, ibuprofen/tylenol for pain can resume breast feeding, but pt will stop now anticipate discharge, pcp followup, return precautions 11/20/18 14:15 <Tahira Kaufman - Last Filed: 11/20/18 15:22> *DC/Admit/Observation/Transfer - Discharge Dispostion Decision to Admit order: No <Melanie Melo - Last Filed: 11/20/18 15:18> <Tahira Kaufman - Last Filed: 11/20/18 15:22> Diagnosis at time of Disposition: Infection of right breast, Mastitis - Discharge Dispostion Disposition: HOME Condition at time of disposition: Stable - Prescriptions Prescriptions: Cephalexin Monohydrate [Keflex -] 500 mg PO Q8H #30 capsule - Referrals Referrals: Ovidio Almaguer MD [Staff Physician] - 2 Days - Patient Instructions Printed Discharge Instructions: DI for Mastitis Additional Instructions: Thank you for choosing [facility]. It was a pleasure taking care of you. You may take Motrin 600 mg every 6 hours by mouth as needed for mild to moderate pain. Take Motrin with food. Apply warm compresses Take antibiotics as prescribed You were referred to breast surgeon for further evaluation Return to the Emergency Department if your symptoms worsen or persist, you have fever, shortness of breath, chest pain, increased breast swelling, pustular drainage, streaking or other concerning symptoms.
[2018-11-20 12:33] LABS: BASO % 0.1 % (0-2.0); HEMATOCRIT 38.4 % (32.4-45.2); LYMPH % 5.4 % (8-40); MCH 29.4 pg (25.7-33.7); MCHC 33.7 g/dl (32.0-36.0); MEAN CELL VOLUME 87.2 fl (80-96); MEAN PLT VOLUME 9.1 fl (7.5-11.1); MONO % 2.6 % (3.8-10.2); NEUT % 91.9 % (42.8-82.8); PLATELET COUNT 168 K/MM3 (134-434); RBC 4.41 M/mm3 (3.60-5.2); RDW 13.1 % (11.6-15.6); WHITE BLOOD COUNT 8.1 K/mm3 (4.0-10.0)
[2018-11-20 12:51] LABS: URINE APPEARANCE CLEAR; URINE BILIRUBIN NEGATIVE (NEGATIVE); URINE COLOR YELLOW; URINE GLUCOSE (UA) NEGATIVE (NEGATIVE); URINE KETONE NEGATIVE (NEGATIVE); URINE LEUK ESTERASE NEGATIVE (NEGATIVE); URINE NITRITE NEGATIVE (NEGATIVE); URINE PROTEIN NEGATIVE (NEGATIVE); URINE UROBILINOGEN 0.2 mg/dL (0.2-1.0)
[2018-11-20] MEDS ORDERED: IBUPROFEN 600 MG TABLET (FP) PO ONE ×2 (12:59→13:34)
[2018-11-20 13:01] LABS: ALBUMIN 3.8 g/dl (3.4-5.0); BILIRUBIN,TOTAL 0.5 mg/dL (0.2-1); BLOOD UREA NITROGEN 11.5 mg/dL (7-18); CALCIUM 8.7 mg/dL (8.5-10.1); CREATININE 0.8 mg/dL (0.55-1.3); POTASSIUM 4.3 mmol/L (3.5-5.1); TOT PROT 7.7 g/dl (6.4-8.2)
[2018-11-20] MEDS ORDERED: CEPHALEXIN MONOHYDRATE 500 MG CAPSULE (UD) PO ONE (13:23)
[2018-11-20] MEDS ORDERED: CEPHALEXIN MONOHYDRATE 500 MG CAPSULE (UD) ONE (13:34)
[2018-11-20 14:23] LABS: ANISOCYTOSIS 0; HELMET CELLS 0; HOWELL-JOLLY BODIES 0; MACROCYTOSIS 0; OVALOCYTE 0; PLATELET ESTIMATE NORMAL; ROULEAU 0; SICKELED CELLS 0; TARGET CELLS 0; TEAR DROP CELLS 0; TOXIC GRANULATION 0
[2018-11-20 16:19] VITALS: BP 97/52; PULSE 76; TEMP 98.3
== END 2018-11-20 16:10 | disposition home or self-care (01) ==
LOC: JER 10:27
PROC: 3E033GC Introduction of Other Therapeutic Substance into Peripheral Vein, Percutaneous Approach (ICD-10-PCS; principal; 2018-11-20)
PROC: 3E0337Z Introduction of Electrolytic and Water Balance Substance into Peripheral Vein, Percutaneous Approach (ICD-10-PCS; 2018-11-20)
DX: N61.0 Mastitis without abscess (principal)
CPT/HCPCS: 36415; 76641-TC-RT; 80053; 81003; 84703; 85025; 87086; 99283-25; J7030

== ENCOUNTER 2019-05-03 02:04 | Emergency (ER) | payer OTHER ==
--- NOTE | 2019-05-03 02:30 | PDOC ---
History of Present Illness - General Chief Complaint: Shortness of Breath Stated Complaint: DIFFICULTY BREATHING,BACK PAIN Time Seen by Provider: 05/03/19 02:23 - History of Present Illness Initial Comments: 05/03/19 03:44 33 y/o F no significant medical hx, presents to the ED with chest pain. pt just recently recovered from a flu-like illness where she had cough, runny nose and myalgias. Pain has been present for 1 week but she reports it wornesened acutely over night. Pain is 5/10 pressure like in nature radiating to her back . Intermittent in nature. It worsens with lying flat and is alleviated slightly by sitting up or leaning forward. She denies any fevers, chills, nausea, vomiting, shortness of breath, hx of blood clots, hormone/contraceptive use, long travel, unilateral leg swelling. Past History - Past Medical History Allergies/Adverse Reactions: Allergies Allergy/AdvReac Type Severity Reaction Status Date / Time No Known Allergies Allergy Verified 05/03/19 02:25 Home Medications: Ambulatory Orders Famotidine [Pepcid] 20 mg PO BID #14 tablet 05/03/19 COPD: No - Surgical History Cholecystectomy: Yes - Immunization History Immunization Up to Date: Yes - Psycho Social/Smoking Cessation Hx Smoking History: Never smoked Have you smoked in the past 12 months: No Information on smoking cessation initiated: No Hx Alcohol Use: No Drug/Substance Use Hx: No Substance Use Type: None Review of Systems - Review of Systems Constitutional: No: Chills, Fever HEENTM: No: Eye Pain, Blurred Vision Respiratory: No: Cough, Stridor Cardiac (ROS): Yes: Chest Pain. No: Lightheadedness ABD/GI: No: Nausea, Vomiting : No: Burning, Dysuria Musculoskeletal: Yes: Back Pain Integumentary: No: Bruising, Change in Color Neurological: No: Headache, Numbness *Physical Exam - Vital Signs Last Vital Signs Temp Pulse Resp BP Pulse Ox 98.9 F 63 20 128/81 100 05/03/19 02:25 05/03/19 02:25 05/03/19 02:25 05/03/19 02:25 05/03/19 02:25 - Physical Exam 05/03/19 03:51 PE: GENERAL: Awake, alert, and fully oriented, in no acute distress HEAD: No signs of trauma, normocephalic, atraumatic EYES: PERRLA, EOMI, sclera anicteric, conjunctiva clear ENT: Auricles normal inspection, hearing grossly normal, nares patent, oropharynx clear without exudates. Moist mucosa NECK: Normal ROM, supple, no lymphadenopathy, JVD, or masses LUNGS: No distress, speaks full sentences, clear to auscultation bilaterally HEART: Regular rate and rhythm, normal S1 and S2, no murmurs, rubs or gallops, peripheral pulses normal and equal bilaterally. ABDOMEN: Soft. mild epigastric tenderness, normoactive bowel sounds. No guarding, no rebound. No masses EXTREMITIES : Normal inspection, Normal range of motion, no edema. No clubbing or cyanosis NEUROLOGICAL: Cranial nerves II through XII grossly intact. Normal speech, normal gait, no focal sensorimotor deficits SKIN: Warm, Dry, normal turgor, no rashes or lesions noted ED Treatment Course - LABORATORY CBC & Chemistry Diagram: 05/03/19 03:02 05/03/19 03:02 Medical Decision Making - Medical Decision Making 05/03/19 03:52 33 y/o F no significant medical hx, presents to the ED with chest pain. pt just recently recovered from a flu-like illness where she had cough, runny nose and myalgias ekg, cbc, cmp, lipase, troponin, chest x-ray tsh, EKG sinus bradycardia 05/03/19 04:34 troponin 0.07 troponin reduced to 0.04 no pericardial effusion on bedside ultrasound 05/17/19 17:32 Discharge - Discharge Information Problems reviewed: Yes Clinical Impression/Diagnosis: Chest pain Qualifiers: Chest pain type: unspecified Qualified Code(s): R07.9 - Chest pain, unspecified Condition: Stable Disposition: HOME - Admission No - Additional Discharge Information Prescriptions: Famotidine [Pepcid] 20 mg PO BID #14 tablet - Follow up/Referral Referrals: Gamal Baltazar MD [Staff Physician] - Sher Feliciano MD [Staff Physician] - - Patient Discharge Instructions Patient Printed Discharge Instructions: DI for Gastroesophageal Reflux Disease (GERD), DI for Chest Pain Additional Instructions: Follow up with your primary care provider in the next 2-3 days. You have been prescribed medications. Take as directed RETURN TO THE ER IF: You have pain in your arms, neck, jaw, teeth, or back. Your pain increases or changes in intensity or duration. You develop nausea, vomiting, or sweating (diaphoresis). You develop shortness of breath, or you faint. Your vomit is green, yellow, black, or looks like coffee grounds or blood. Your stool is red, bloody, or black. These symptoms could be signs of other problems, such as heart disease, gastric bleeding, or esophageal bleeding. - Post Discharge Activity
[2019-05-03 02:31] VITALS: BMI 24.6
[2019-05-03] MEDS ORDERED: IBUPROFEN 600 MG TABLET (FP) PO ONE ×2 (02:52→03:05)
--- NOTE | 2019-05-03 02:59 | PDOC ---
Attending Attestation - Resident Resident Name: Mohit Null - ED Attending Attestation I have performed the following: I have examined & evaluated the patient, The case was reviewed & discussed with the resident, I agree w/resident's findings & plan, Exceptions are as noted - HPI HPI: 05/16/19 19:50 See resident HPI - Physicial Exam PE: 05/16/19 19:50 Agree with documented exam - Medical Decision Making 05/16/19 19:51 Chest pain in young woman after recent viral illness that improves with sitting up, PERC negative No effusion on POCUS, no friction rub detected on auscultation, afebrile, EKG unremarkable morphology with initial rate 56 Toponin 0.07 trended down to 0.04 PE unlikely, percarditis, myocarditis less likely ACS less likely consider pleurisy, msk px Pt subjectively improved DC home, discharge instructions, pcp f/u
[2019-05-03] MEDS ORDERED: MAG HYDROX/AL HYDROX/SIMETH 30 ML UNIT-DOSE CUP PO ONE (03:16)
[2019-05-03] MEDS ORDERED: FAMOTIDINE 20 MG/50 ML IVPB 20 MG/50 ML MG IVPB ONE ×2 (03:16→03:59)
[2019-05-03 03:37] LABS: BASO % 0.3 % (0-2.0); EOS % 0.8 % (0-4.5); HEMATOCRIT 34.6 % (32.4-45.2); HEMOGLOBIN 11.6 GM/dL (10.7-15.3); LYMPH % 44.4 % (8-40); MCH 29.2 pg (25.7-33.7); MCHC 33.6 g/dl (32.0-36.0); MEAN CELL VOLUME 86.9 fl (80-96); MEAN PLT VOLUME 9.1 fl (7.5-11.1); MONO % 8.6 % (3.8-10.2); NEUT % 45.9 % (42.8-82.8); PLATELET COUNT 159 K/MM3 (134-434); RBC 3.98 M/mm3 (3.60-5.2); WHITE BLOOD COUNT 4.5 K/mm3 (4.0-10.0)
[2019-05-03] MEDS ORDERED: SUCRALFATE 1 GM TABLET (FP) ONE (03:58)
[2019-05-03] MEDS ORDERED: MAG HYDROX/AL HYDROX/SIMETH 30 ML UNIT-DOSE CUP ONE (03:59)
[2019-05-03] MEDS ORDERED: SUCRALFATE 1 GM/10 ML UNIT DOSE CUPS PO ONE ×2 (04:05→10:00)
[2019-05-03 04:09] LABS: ALBUMIN 3.5 g/dl (3.4-5.0); BILIRUBIN,TOTAL 0.2 mg/dL (0.2-1); BLOOD UREA NITROGEN 14.2 mg/dL (7-18); CALCIUM 8.3 mg/dL (8.5-10.1); CREATININE 0.7 mg/dL (0.55-1.3); TOT PROT 7.2 g/dl (6.4-8.2)
[2019-05-03 07:04] VITALS: BP 110/62; PULSE 61; TEMP 97.9
--- NOTE | 2019-05-03 13:50 | EKG ---
Test Reason : Blood Pressure : / mmHG Vent. Rate : 059 BPM Atrial Rate : 059 BPM P-R Int : 114 ms QRS Dur : 092 ms QT Int : 446 ms P-R-T Axes : 019 016 013 degrees QTc Int : 441 ms SINUS BRADYCARDIA OTHERWISE NORMAL ECG WHEN COMPARED WITH ECG OF 31-MAR-2017 23:49, NO SIGNIFICANT CHANGE WAS FOUND Confirmed by RY WALLER MD ([id number]) on 05/03/2019 1:50:45 PM Referred By: Confirmed By:RY WALLER MD
== END 2019-05-03 07:09 | disposition home or self-care (01) ==
LOC: JER 02:04
PROC: 3E033GC Introduction of Other Therapeutic Substance into Peripheral Vein, Percutaneous Approach (ICD-10-PCS; principal; 2019-05-03)
DX: R07.9 Chest pain, unspecified (principal)
CPT/HCPCS: 36415; 71046-TC-FY; 80053; 82550; 83690; 84443; 84484; 84703; 85025; 93005; 93010; 96365; 99284-25

== ENCOUNTER 2019-09-17 03:32 | Emergency (ER) | payer OTHER ==
[2019-09-17 03:45] VITALS: BP 132/82; PULSE 74; TEMP 98.3; BMI 26.4
--- NOTE | 2019-09-17 03:57 | PDOC ---
Attending Attestation - Resident Resident Name: Fredo Vera - ED Attending Attestation I have performed the following: I have examined & evaluated the patient, The case was reviewed & discussed with the resident, I agree w/resident's findings & plan - HPI HPI: 09/17/19 06:13 see resident hpi - Physicial Exam PE: 09/17/19 06:13 see resident exam - Medical Decision Making 09/17/19 06:14 34-year-old female with reproducible atraumatic right shoulder pain currently undergoing outpatient work-up for inflammatory arthritis There is no deformity or history of trauma, x-ray not indicated at this time Patient improved after NSAIDs and prednisone Will DC to continue work-up with rheumatology as scheduled, Medrol Dosepak Discharge - Discharge Information Problems reviewed: Yes Clinical Impression/Diagnosis: Right shoulder pain Qualifiers: Chronicity: acute Qualified Code(s): M25.511 - Pain in right shoulder Rheumatoid arthritis Qualifiers: Rheumatoid arthritis location: shoulder Rheumatoid factor presence: with rheumatoid factor Laterality: bilateral Qualified Code(s): M05.711 - 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 without organ or systems involvement Condition: Stable Disposition: HOME - Additional Discharge Information Prescriptions: Methylprednisolone [Medrol Dose Marco Antonio] 4 mg PO ASDIR #21 tablet - Follow up/Referral Referrals: Jaret Broussard MD [Staff Physician] - Aayush Gongora MD [Non Staff, Medical] - Hubert Foy [Non Staff, Medical] - Edward Mcclendon MD [Non Staff, Medical] - Chuy Rosales MD [Staff Physician] - Maria A Hernandez MD [Non Staff, Medical] - Weston Irizarry MD [Non Staff, Medical] - Jenni Bartlett MD [Non Staff, Medical] - Gildardo Li [Non Staff, Medical] - - Patient Discharge Instructions Patient Printed Discharge Instructions: Rheumatoid Arthritis Additional Instructions: You must return to the Emergency Department with any new complaints, if your symptoms persist and do not improve or if you develop any other new or worsening concerns. We have given you the number of many rheumatologists to call and schedule an appointment with. Please make sure to call them up today and schedule an appointment in the next 2 or 3 days. Please call to follow up with your Primary Care physician in 1-2 days to discuss what happened to you in the emergency room, and make sure you are being looked after and taken care of. Your emergency room visit is not complete without this follow up appointment. Thank you for coming to the [facility]. We hope you feel better soon! Print Language: SYRIAN - Post Discharge Activity
[2019-09-17] MEDS ORDERED: KETOROLAC TROMETHAMINE 60 MG/2 ML VIAL IM ONE (04:01)
[2019-09-17] MEDS ORDERED: predniSONE 20 MG TABLET (UD) PO ONE (04:02)
--- NOTE | 2019-09-17 04:07 | PDOC ---
History of Present Illness - General Chief Complaint: Pain, Acute Stated Complaint: PAIN Time Seen by Provider: 09/17/19 03:46 History Source: Patient Exam Limitations: No Limitations - History of Present Illness Initial Comments: Cathie is a 34 yo Obese F who reports a recent diagnosis of RA by her PCP who presents to the [facility] er with severe right shoulder pain which has been present for the past 4 months. She states the pain comes and goes, usually responds to tylenol but tonight tylenol was not working and because of her pain she came into the ER for relief. She states she was given a retail asset protection specialist to follow up with as an outpatient but she has not been able to schedule an appointment because of COVID. She states she desperately wants to see a retail asset protection specialist so that her condition can be treated appropriately. She has not yet been started on any DMARDs. Patient also endorses on and off swelling of her PCP hand joints. Currently her right middle PIP joint is swollen. last week her left 2nd PIP joint was swollen. Patient denies having any chest pain, SOB, difficulty breathing, nausea, vomiting, headache, blurry vision, back pain, abdominal pain, dysuria, freque ncy, urgency, syncope, diarrhea or constipation. Allergies: NKA, NKDA Social Hx: Denies smoking, drinking, or other substance abuse. PSH: x2 Past History - Past Medical History Allergies/Adverse Reactions: Allergies Allergy/AdvReac Type Severity Reaction Status Date / Time No Known Allergies Allergy Verified 09/17/19 03:43 Home Medications: Ambulatory Orders Famotidine [Pepcid] 20 mg PO BID #14 tablet 05/03/19 Methylprednisolone [Medrol Dose Marco Antonio] 4 mg PO ASDIR #21 tablet 09/17/19 COPD: No - Surgical History Cholecystectomy: Yes - Immunization History Immunization Up to Date: Yes - Psycho Social/Smoking Cessation Hx Smoking History: Never smoked Have you smoked in the past 12 months: No Information on smoking cessation initiated: No Hx Alcohol Use: No Drug/Substance Use Hx: No Substance Use Type: None Review of Systems - Review of Systems Able to Perform ROS?: Yes Comments:: CONSTITUTIONAL: Absent: fever, no chills, no fatigue EYES: Absent: visual changes ENT: Absent: ear pain, no sore throat CARDIOVASCULAR: Absent: chest pain, no palpitations RESPIRATORY: Absent: cough, no SOB GI: Absent: abdominal pain, no nausea, no vomiting, no constipation, no diarrhea GENITOURINARY: Absent: dysuria, no frequency, no hematuria MUSKULOSKELETAL: Present: arthralgia Absent: back pain, no myalgia SKIN: Absent: rash NEURO: Absent: headache *Physical Exam - Vital Signs Last Vital Signs Temp Pulse Resp BP Pulse Ox 98.3 F 74 20 132/82 99 09/17/19 03:42 09/17/19 03:42 09/17/19 03:42 09/17/19 03:42 09/17/19 03:42 - Physical Exam GENERAL: Well-appearing, well-nourished. No apparent distress. HEENT: Normocephalic, atraumatic. PERRL, EOM intact. CARDIOVASCULAR: Normal S1, S2. Regular rate and rhythm. PULMONARY: No evidence of respiratory distress. Lungs clear to auscultation bilaterally. No wheezing, rales or rhonchi. ABDOMEN: Soft, non-distended, non-tender. EXTREMITIES: There is a focal area of Tenderness on the right anterior shoulder. The overlying skin is not discolored, is not erythematous. The right 3rd PIP joint is mildly swollen but not erythematous and not tender to palpation. Normal ROM in all four extremities. No gross deformities. SKIN: Warm, dry. No rash NEUROLOGICAL: No focal neurological deficits. Medical Decision Making - Medical Decision Making Cathie is a 34 yo Obese F who reports a recent diagnosis of RA by her PCP who presents to the [facility] er with severe right shoulder pain which has been present for the past 4 months. She states the pain comes and goes, usually responds to tylenol but tonight tylenol was not working and because of her pain she came into the ER for relief. She states she was given a retail asset protection specialist to follow up with as an outpatient but she has not been able to schedule an appointment because of COVID. She states she desperately wants to see a retail asset protection specialist so that her condition can be treated appropriately. She has not yet been started on any DMARDs. Patient also endorses on and off swelling of her PCP hand joints. Currently her right middle PIP joint is swollen. last week her left 2nd PIP joint was swollen. Patient denies having any chest pain, SOB, difficulty breathing, nausea, vomiting, headache, blurry vision, back pain, abdominal pain, dysuria, frequency, urgency, syncope, diarrhea or constipation. Vital Signs Temp Pulse Resp BP Pulse Ox 98.3 F 74 20 132/82 99 09/17/19 03:42 09/17/19 03:42 09/17/19 03:42 09/17/19 03:42 09/17/19 03:42 DDx IBNLT: Rheumatoid arthritis, shoulder injury, inflammatory arthritis Plan: NSAID, Steroid, home with Medrol dose pack The patient appears clinically sober, is A&O x4, and appears to be capable and have capacity to make reasonable decisions. He states he is currently in the emergency department, knows who the president is, states the correct time, correct day, and correct month. The patient is ambulatory in ER and has walked around the nursing station multiple times with a straight gait, and is not ataxic. Tolerating PO well, ate a sandwich and drank juice. Denies having any SI or HI. Patient states will not be driving home. This clinical encounter is taking place during a federal and state health care emergency attributable to the novel [place] Virus pandemic. The [place] of the Department of Health and Human Services has declared, pursuant to the Public Health Service Act 319F-3 (42 U.S.C. 247d-6d), that a covered persons activities related to medical countermeasures against COVID-19 will be immune from liability under Federal and State law. Discharge - Discharge Information Problems reviewed: Yes Clinical Impression/Diagnosis: Right shoulder pain Qualifiers: Chronicity: acute Qualified Code(s): M25.511 - Pain in right shoulder Rheumatoid arthritis Qualifiers: Rheumatoid arthritis location: shoulder Rheumatoid factor presence: with rheumatoid factor Laterality: bilateral Qualified Code(s): M05.711 - 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 without organ or systems involvement Condition: Stable Disposition: HOME - Admission No - Additional Discharge Information Prescriptions: Methylprednisolone [Medrol Dose Marco Antonio] 4 mg PO ASDIR #21 tablet - Follow up/Referral Referrals: Gildardo Li [Non Staff, Medical] - Jenni Bartlett MD [Non Staff, Medical] - Weston Irizarry MD [Non Staff, Medical] - Chuy Rosales MD [Staff Physician] - Maria A Hernandez MD [Non Staff, Medical] - Edward Mcclendon MD [Non Staff, Medical] - Hubert Foy [Non Staff, Medical] - Aayush Gongora MD [Non Staff, Medical] - Jaret Broussard MD [Staff Physician] - - Patient Discharge Instructions Patient Printed Discharge Instructions: Rheumatoid Arthritis Additional Instructions: You must return to the Emergency Department with any new complaints, if your symptoms persist and do not improve or if you develop any other new or worsening concerns. We have given you the number of many rheumatologists to call and schedule an appointment with. Please make sure to call them up today and schedule an appointment in the next 2 or 3 days. Please call to follow up with your Primary Care physician in 1-2 days to discuss what happened to you in the emergency room, and make sure you are being looked after and taken care of. Your emergency room visit is not complete without this follow up appointment. Thank you for coming to the [facility]. We hope you feel better soon! Print Language: CZECH - Post Discharge Activity
[2019-09-17] MEDS ORDERED: predniSONE 20 MG TABLET (UD) ONE (04:15)
[2019-09-17] MEDS ORDERED: KETOROLAC TROMETHAMINE 60 MG/2 ML VIAL ONE (04:15)
== END 2019-09-17 05:00 | disposition home or self-care (01) ==
LOC: EDBD → JER 03:32
PROC: 3E0233Z Introduction of Anti-inflammatory into Muscle, Percutaneous Approach (ICD-10-PCS; principal; 2019-09-17)
DX: M25.511 Pain in right shoulder (principal); M05.711 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 without organ or systems involvement
CPT/HCPCS: 99284-25

== ENCOUNTER 2022-01-05 09:45 | Observation (INO) | payer OTHER ==
[2022-01-05 09:59] VITALS: BMI 28.3
[2022-01-05] MEDS ORDERED: SODIUM CHLORIDE 1,000 ML IV STA ×2 (10:45→13:03)
[2022-01-05] MEDS ORDERED: ONDANSETRON 4 MG/2 ML VIAL IVPUSH ONE (10:46)
[2022-01-05] MEDS ORDERED: ACETAMINOPHEN 1000 MG/100 ML BAG IVPB ONE (10:46)
[2022-01-05] MEDS ORDERED: ONDANSETRON 4 MG/2 ML VIAL ONE (11:53)
[2022-01-05] MEDS ORDERED: ACETAMINOPHEN INJECTION 100 ML IVPB ONE (11:53)
[2022-01-05 12:30] LABS: BASO % 0.3 % (0-2.0); EOS % 0.9 % (0-4.5); HEMATOCRIT 39.6 % (32.4-45.2); HEMOGLOBIN 12.9 GM/dL (10.7-15.3); LYMPH % 22.7 % (8-40); MCH 29.1 pg (25.7-33.7); MCHC 32.5 g/dl (32.0-36.0); MEAN CELL VOLUME 89.4 fl (80-96); MONO % 6.8 % (3.8-10.2); NEUT % 69.3 % (42.8-82.8); PLATELET COUNT 208 10^3/uL (134-434); RBC 4.43 M/mm3 (3.60-5.2); RDW 12.7 % (11.6-15.6); WHITE BLOOD COUNT 16.5 K/mm3 (4.0-10.0)
[2022-01-05 12:32] LABS: EPI CELLS 24 /uL (0-25.1); HYALINE CASTS 2 /uL (0-3.1); URINE APPEARANCE CLOUDY; URINE BACTERIA >9,000 /uL (0-1359); URINE BILIRUBIN NEGATIVE (NEGATIVE); URINE COLOR YELLOW; URINE GLUCOSE (UA) NEGATIVE (NEGATIVE); URINE KETONE NEGATIVE (NEGATIVE); URINE LEUK ESTERASE 3+ (NEGATIVE); URINE NITRITE POSITIVE (NEGATIVE); URINE PROTEIN 2+ (NEGATIVE); URINE RBC 435 /uL (0-23.9); URINE UROBILINOGEN 0.2 mg/dL (0.2-1.0); URINE WBC 2502 /uL (0-25.8)
[2022-01-05 12:53] LABS: CALCIUM 8.2 mg/dL (8.5-10.1)
[2022-01-05 12:54] LABS: BLOOD UREA NITROGEN 10.1 mg/dL (7-18)
[2022-01-05 12:57] LABS: CREATININE 0.7 mg/dL (0.55-1.3)
[2022-01-05 12:59] LABS: BILIRUBIN,TOTAL 0.5 mg/dL (0.2-1); TOT PROT 7.2 g/dl (6.4-8.2)
[2022-01-05] MEDS ORDERED: CEFTRIAXONE 2 GM-D5W BAG 2 GM/50 ML BAG IVPB ONE (13:06)
[2022-01-05] MEDS ORDERED: ACETAMINOPHEN 325 MG TABLET (FP) PO PRN (13:07)
[2022-01-05] MEDS ORDERED: ONDANSETRON 4 MG/2 ML VIAL IVPUSH PRN (13:09)
[2022-01-05] MEDS ORDERED: KETOROLAC TROMETHAMINE 15 MG/ML VIAL IVPUSH PRN (13:18)
[2022-01-05] MEDS ORDERED: CEFTRIAXONE 2 GM/100 ML BAG IVPB ONE (13:33)
[2022-01-05] MEDS ORDERED: FLU VACC QS2022-23(6MOS UP)/PF 60 MCG/0.5 ML SYRINGE IM ONE (20:45)
[2022-01-05 21:03] VITALS: RESP 20
[2022-01-06] MEDS: SODIUM CHLORIDE 1,000 ML IV SCH (08:43)
[2022-01-06 10:37] LABS: BASO % 0.2 % (0-2.0); EOS % 1.5 % (0-4.5); HEMATOCRIT 38.7 % (32.4-45.2); HEMOGLOBIN 13.1 GM/dL (10.7-15.3); MCH 30.3 pg (25.7-33.7); MCHC 33.8 g/dl (32.0-36.0); MEAN CELL VOLUME 89.8 fl (80-96); MONO % 6.6 % (3.8-10.2); NEUT % 66.7 % (42.8-82.8); PLATELET COUNT 189 10^3/uL (134-434); RBC 4.31 M/mm3 (3.60-5.2); RDW 12.6 % (11.6-15.6); WHITE BLOOD COUNT 10.5 K/mm3 (4.0-10.0)
[2022-01-06] MEDS: CEFTRIAXONE 1 GM in DEXTROSE 5%-WATER - 50 ML IVPB SCH (10:41)
[2022-01-06] MEDS: ENOXAPARIN NA (PORCINE) 40 MG/0.4 ML DISP.SYRIN SQ SCH (10:49)
[2022-01-06 11:23] LABS: ALBUMIN 3.4 g/dl (3.4-5.0); CALCIUM 8.1 mg/dL (8.5-10.1)
[2022-01-06 11:24] LABS: BLOOD UREA NITROGEN 7.2 mg/dL (7-18)
[2022-01-06 11:27] LABS: CREATININE 0.6 mg/dL (0.55-1.3); PHOSPHOROUS 3.4 mg/dL (2.5-4.9)
[2022-01-06 11:28] LABS: TOT PROT 6.6 g/dl (6.4-8.2)
[2022-01-06 11:35] LABS: BILIRUBIN,TOTAL 0.6 mg/dL (0.2-1)
[2022-01-07] MEDS: CEFTRIAXONE 1 GM in DEXTROSE 5%-WATER - 50 ML IVPB SCH (09:10)
[2022-01-07] MEDS: SODIUM CHLORIDE 1,000 ML IV SCH (09:12)
[2022-01-07] MEDS: ENOXAPARIN NA (PORCINE) 40 MG/0.4 ML DISP.SYRIN SQ SCH (09:14)
[2022-01-07 12:20] LABS: BASO % 0.3 % (0-2.0); EOS % 1.7 % (0-4.5); HEMOGLOBIN 12.4 GM/dL (10.7-15.3); LYMPH % 24.6 % (8-40); MCHC 33.5 g/dl (32.0-36.0); MEAN CELL VOLUME 89.5 fl (80-96); MEAN PLT VOLUME 8.7 fl (7.5-11.1); MONO % 9.4 % (3.8-10.2); PLATELET COUNT 199 10^3/uL (134-434); RBC 4.14 M/mm3 (3.60-5.2); RDW 12.6 % (11.6-15.6); WHITE BLOOD COUNT 12.3 K/mm3 (4.0-10.0)
[2022-01-07 12:52] LABS: ALBUMIN 3.2 g/dl (3.4-5.0); BLOOD UREA NITROGEN 10.2 mg/dL (7-18); CREATININE 0.6 mg/dL (0.55-1.3); MAGNESIUM 1.9 mg/dL (1.8-2.4)
[2022-01-07 12:54] LABS: TOT PROT 6.5 g/dl (6.4-8.2)
[2022-01-07 12:55] LABS: CALCIUM 7.9 mg/dL (8.5-10.1)
[2022-01-07 13:25] LABS: BILIRUBIN,TOTAL 0.5 mg/dL (0.2-1)
[2022-01-07 13:26] VITALS: BP 121/78; PULSE 79; TEMP 98.3
== END 2022-01-07 14:04 | disposition home or self-care (01) ==
LOC: EDSEX → JER 09:45 → INTOOBSV 13:34 → UNDOADMOB 13:34 → JERBED 13:34 → J6S 20:28 → JERBED 01-07 09:12 → J6S 01-07 09:12 → EDUNIT# 01-07 09:12
PROVIDERS: ADMIT Internal Medicine; ATTEND Nurse Practitioner Family
PROC: 3E033NZ Introduction of Analgesics, Hypnotics, Sedatives into Peripheral Vein, Percutaneous Approach (ICD-10-PCS; principal; 2022-01-07)
PROC: 3E03329 Introduction of Other Anti-infective into Peripheral Vein, Percutaneous Approach (ICD-10-PCS; 2022-01-07)
PROC: 3E033GC Introduction of Other Therapeutic Substance into Peripheral Vein, Percutaneous Approach (ICD-10-PCS; 2022-01-07)
PROC: 3E0337Z Introduction of Electrolytic and Water Balance Substance into Peripheral Vein, Percutaneous Approach (ICD-10-PCS; 2022-01-07)
DX: N12 Tubulo-interstitial nephritis, not specified as acute or chronic (principal); N39.0 Urinary tract infection, site not specified; R10.13 Epigastric pain; R10.32 Left lower quadrant pain; Z29.8 Encounter for other specified prophylactic measures; L40.9 Psoriasis, unspecified
CPT/HCPCS: 36415; 74176-TC; 80053; 81003; 82962; 83735; 84100; 84703; 85025; 87086; 87186; 93005; 93010; 96361; 96365; 96367; 96375; 99285-25; C9803-CS; G0378; U0003; U0005